=== PATIENT | female | born 1995 | race Caucasian/White ===

== ENCOUNTER 2020-11-22 16:03 | Emergency (ER) | payer OTHER ==
[~2020-11-22] VITALS: Ht 172.7 cm; Wt 70.3 kg
--- NOTE | 2020-11-22 16:23 | NUR ---
Dr Avila at the bedside for MSE.
[2020-11-22] MEDS ORDERED: ONDANSETRON ODT 4 MG TAB.RAPDIS SL ONE (16:30)
[2020-11-22] MEDS ORDERED: ONDANSETRON ODT 4 MG TAB.RAPDIS ONE (16:37)
--- NOTE | 2020-11-22 17:40 | NUR ---
Pt denies nausea, able to tolorate po fluids, awaiting for Ct result.
[2020-11-22] MEDS ORDERED: HYDR-4209 PO ×2 (17:53→18:02)
[2020-11-22] MEDS ORDERED: ONDA4TAB11 PO (17:53)
[2020-11-22 18:11] VITALS: BP 102/68
--- NOTE | 2020-11-22 18:15 | NUR ---
Patient discharged to home in stable condition. Written and verbal after care instructions given. Patient verbalizes understanding of instructions. Stressed follow up or return to ER for worsening s/s.
== END 2020-11-22 18:15 | disposition home or self-care (01) ==
LOC: ER 16:07
DX: S06.0X0A Concussion without loss of consciousness, initial encounter (principal); V49.9XXA Car occupant (driver) (passenger) injured in unspecified traffic accident, initial encounter; Y92.410 Unspecified street and highway as the place of occurrence of the external cause
CPT/HCPCS: 70450; A4663; Q0162